=== PATIENT | female | born 1985 | race Caucasian/White ===

== ENCOUNTER → 2016-12-12 | Outpatient (REF) | LOC: ZLAB.WCH 18:25 | DX: Z01.89 Encounter for other specified special examinations (principal) ==

== ENCOUNTER → 2017-10-06 | Outpatient (REF) ==
[2017-10-06 16:32] LABS: C-REACTIVE PROTEIN < 0.5 mg/dL (0.0-0.9)
== END ==
LOC: ZLAB.WCH 15:54
PROVIDERS: Family Medicine
DX: Z01.89 Encounter for other specified special examinations (principal)

== ENCOUNTER 2019-04-14 11:03 | Inpatient (IN) | payer MEDICAID ==
[~2019-04-14] VITALS: Ht 167.6 cm; Wt 83.6 kg
[2019-04-15] VITALS (18 sets, daily range): BP systolic 98–123; BP diastolic 40–76; PULSE 64–97; TEMP 98.1–98.4
[2019-04-15] MEDS ORDERED: PRENATAL TABLET PO (08:15)
[2019-04-15 08:57] LABS: BASO % 0.2 % (0.0-2.0); EOS # 0.1 (0.0-0.7); EOS % 0.7 % (0-4.0); GRAN # 5.6 (1.4-6.5); GRAN % 67.1 % (42.2-75.2); HEMOGLOBIN 10.8 g/dl (12.5-16.0); LYMPH % 24.4 % (20.0-51.0); MEAN CELL VOLUME 86 fl (80.0-100.0); MEAN CORPUSCULAR HEMOGLOBIN 27 pg (27.0-31.0); MEAN CORPUSCULAR HGB CONC 32 g/dl (33.0-37.0); MEAN PLATELET VOLUME 10.1 fl (7.4-10.4); MONO # 0.6 (0.1-0.6); MONO % 7.1 % (1.7-9.3); PLATELET COUNT 260 K/mm3 (130-400); REDCELL DISTRIBUTION WIDTH-CV 13.8 % (11.5-14.5)
[2019-04-15 09:02] LABS: HEMATOCRIT 34.2 % (37.0-47.0)
--- NOTE | 2019-04-15 09:04 | NUR ---
0900 PATIENT READY FOR SCHEDULED C SECTION. ALL CONSENTS SIGNED AT THIS TIME. IV STARTED IN LEFT WRIST. EFM ON FHT 118 BABY VERY ACTIVE
[2019-04-16 01:55] VITALS: BP 104/47; PULSE 76; TEMP 98
[2019-04-16 07:30] VITALS: BP 104/51; PULSE 82; TEMP 98.1
--- NOTE | 2019-04-16 10:53 | NUR ---
Patient was indisposed.
[2019-04-16 16:10] VITALS: BP 113/48; PULSE 79; TEMP 97.6
--- NOTE | 2019-04-16 17:00 | NUR ---
Bruise noted below incision and marked border with marker.
[2019-04-16 20:30] VITALS: BP 99/71; PULSE 82; TEMP 97.7
[2019-04-17] MEDS ORDERED: IBU600 MG PO (08:35)
[2019-04-17] MEDS ORDERED: PERCOCET 325 MG1 TA2 PO (08:35)
[2019-04-17 09:00] VITALS: BP 114/58; PULSE 71; TEMP 98.5
== END 2019-04-17 12:50 | disposition home or self-care (01) | DRG 788 ==
LOC: OB 04-15 07:48
PROVIDERS: ADMIT Obstetrics & Gynecology
PROC: 10D00Z1 Extraction of Products of Conception, Low, Open Approach (ICD-10-PCS; principal; 2019-04-15)
DX: O34.211 Maternal care for low transverse scar from previous cesarean delivery (principal); Z37.0 Single live birth; O99.02 Anemia complicating childbirth; O36.63X0 Maternal care for excessive fetal growth, third trimester, not applicable or unspecified; O99.334 Smoking (tobacco) complicating childbirth; F17.210 Nicotine dependence, cigarettes, uncomplicated; O75.89 Other specified complications of labor and delivery; G43.909 Migraine, unspecified, not intractable, without status migrainosus; D64.9 Anemia, unspecified; Z3A.39 39 weeks gestation of pregnancy
CPT/HCPCS: J0690; J1885; J2250; J2270; J2370; J2405; J2590; J2765; J3010; J7120

== ENCOUNTER → 2019-04-26 | Outpatient (CLI) | payer MEDICAID ==
[~2019-04-26] MED LIST: IBU600 MG PO; PERCOCET 325 MG1 TA2 PO; PRENATAL TABLET PO
--- NOTE | 2019-04-26 14:59 | NUR ---
Pt, Rosalinda Rodriguez, presents to walk-in clinic with 11 day old baby girl, Lanie Rodriguez, with concerns of low milk supply and pump fit questions. Lanie was born on 04/15/2019 by C/section and weighed 8#15.6oz. She had early supplement for low blood glucose and was continuing to be supplemented after discharge. Pt states she did feel milk supply increase a few days after discharge. She was but the baby was not content and continued supplement with formula. At this appointment Lanie is not weighed as she is bottle feeding formula or EBM every 2-3 hours, taking about 3oz per feeding. Pt declines a weight check for . Pt states she pumps 2-3 times per day, collecting about 1-2 per session. Pt wants LC to evaluate pump fit, she has standard size sheild she thinks it too large on the right. Pt pumps with smaller size on the right, states it feels more comfortable. She collects a little over 1oz after pumping less than 10 minutes. She elects to shut the pump off at this time because of discomfort and drips of milk are infrequent. Handouts provided and reviewed about ways to work on improvement of milk supply. Pt encouraged to choose what suggestions she feels she can accomplish and be consistent for 3-4 days to evaluate if milk volume is improving. Encouraged to work on milk supply to make more appealing to infant, but she is encouraged to breastfeed as baby will cooperate as well. Pt verbalizes understanding, questions invited and answered.
== END ==
LOC: LAC 13:44
DX: Z39.1 Encounter for care and examination of lactating mother (principal); Z71.89 Other specified counseling

== ENCOUNTER 2019-08-31 08:33 | Day surgery (SDC) | payer OTHER ==
[~2019-08-31] VITALS: Ht 167.6 cm; Wt 65.6 kg
[2019-08-31 09:27] VITALS: BP 120/63; PULSE 75; TEMP 97.6
[2019-08-31] MEDS ORDERED: PROZAC 20MG20 MG PO (09:43)
[2019-08-31] MEDS ORDERED: PRILOSEC 20MG20 MG PO (09:45)
[2019-08-31] MEDS ORDERED: AMOXICILLIN 8751 TAB PO (09:45)
[2019-08-31] MEDS ORDERED: NEOMYCIN S500 MG/TAB PO (09:46)
[2019-08-31 10:10] VITALS: BP 105/53; PULSE 76; TEMP 98.1
--- NOTE | 2019-08-31 10:10 | NUR ---
Patient was brought back to [facility] via cart. Ambulated to recliner with one assist. Placed on monitors, stable. IV infusing without difficulty. Patient denies pain or nausea. Requesting shayy. Report recieved from Nuris RAMON. Warm blanket provided, call leon within reach, at bedside. Will continue to monitor.
[2019-08-31 10:25] VITALS: BP 94/56; PULSE 68
--- NOTE | 2019-08-31 10:25 | NUR ---
Patient reports she is feeling well. Vital signs remains stable. Will continue to monitor.
[2019-08-31 10:40] VITALS: BP 97/55; PULSE 65
--- NOTE | 2019-08-31 10:40 | NUR ---
Patient tolerating food and drink without difficulty. Dr. Basilio in room to review results. Patient states she is ready to go home at this time. IV removed, without difficulty. Patient to get dressed at this time.
--- NOTE | 2019-08-31 10:45 | NUR ---
Patients discharge instructions reviewed with patient and family. All questions answered. Education packets provided.
--- NOTE | 2019-08-31 10:56 | NUR ---
Patient brought down to lobby via wheel chair. To be driven home by . All belongings in hand.
== END 2019-08-31 10:56 | disposition home or self-care (01) ==
LOC: SDCO 08:33
DX: K29.50 Unspecified chronic gastritis without bleeding (principal); K21.9 Gastro-esophageal reflux disease without esophagitis; K59.00 Constipation, unspecified; F41.9 Anxiety disorder, unspecified
CPT/HCPCS: J2250; J3010; J7030

== ENCOUNTER 2020-09-03 09:59 | Inpatient (IN) | payer MEDICAID ==
[2020-09-03] VITALS (19 sets, daily range): BP systolic 90–135; BP diastolic 47–68; PULSE 71–108; TEMP 98–98.6
[~2020-09-03] VITALS: Ht 165.1 cm; Wt 79.5 kg
[~2020-09-03 09:59] MED LIST changes: +AMOXICILLIN 8751 TAB PO; +NEOMYCIN S500 MG/TAB PO; +PRILOSEC 20MG20 MG PO; +PROZAC 20MG20 MG PO
[2020-09-03 10:40] LABS: BASO % 0.2 % (0.0-2.0); EOS % 0.5 % (0-4.0); GRAN # 5.9 (1.4-6.5); GRAN % 72.8 % (42.2-75.2); HEMOGLOBIN 11.6 g/dl (12.5-16.0); LYMPH # 1.6 (1.2-3.4); LYMPH % 19.8 % (20.0-51.0); MEAN CELL VOLUME 87 fl (80.0-100.0); MEAN CORPUSCULAR HEMOGLOBIN 29 pg (27.0-31.0); MEAN CORPUSCULAR HGB CONC 33 g/dl (33.0-37.0); MEAN PLATELET VOLUME 9.8 fl (7.4-10.4); MONO # 0.5 (0.1-0.6); MONO % 6.3 % (1.7-9.3); PLATELET COUNT 254 K/mm3 (130-400); REDCELL DISTRIBUTION WIDTH-CV 13.9 % (11.5-14.5)
[2020-09-03 10:44] LABS: HEMATOCRIT 34.7 % (37.0-47.0)
[2020-09-03] MEDS ORDERED: PRENATAL (11:13)
[2020-09-03] MEDS ORDERED: PROFERRIN ES12 MG PO (11:13)
[2020-09-03] MEDS ORDERED: SENNA-LAX8.6 MG PO (11:13)
[2020-09-03] MEDS ORDERED: MOTRIN 800800 MG/TAB PO (19:47)
[2020-09-03] MEDS ORDERED: PERCOCET 325 MG1 TA2 PO (19:47)
[2020-09-03] MEDS ORDERED: MACROBID 1100 MG/CAP PO (19:48)
[2020-09-04 04:15] VITALS: BP 104/52; PULSE 71; TEMP 97.6
[2020-09-04 08:11] VITALS: BP 98/40; PULSE 50; TEMP 98
[2020-09-04 12:56] VITALS: BP 127/69; PULSE 80; TEMP 98
[2020-09-04 17:21] VITALS: BP 112/50; PULSE 73; TEMP 98
[2020-09-04 21:30] VITALS: BP 102/45; PULSE 76; TEMP 97.4
[2020-09-05 07:48] VITALS: BP 102/66; PULSE 74; TEMP 98.6
== END 2020-09-05 14:45 | disposition home or self-care (01) | DRG 788 ==
LOC: OB 09:59
PROVIDERS: ADMIT Obstetrics & Gynecology
PROC: 10D00Z1 Extraction of Products of Conception, Low, Open Approach (ICD-10-PCS; principal; 2020-09-03)
PROC: 0TQB0ZZ Repair Bladder, Open Approach (ICD-10-PCS; 2020-09-03)
DX: O34.211 Maternal care for low transverse scar from previous cesarean delivery (principal); O99.02 Anemia complicating childbirth; D64.9 Anemia, unspecified; O99.344 Other mental disorders complicating childbirth; F41.9 Anxiety disorder, unspecified; Z3A.39 39 weeks gestation of pregnancy; Z37.0 Single live birth
CPT/HCPCS: J0690; J1100; J1885; J2250; J2405; J2590; J2765; J3010; J7120

== ENCOUNTER → 2020-09-13 | Outpatient (CLI) | payer MEDICAID ==
[~2020-09-13] MED LIST changes: +MACROBID 1100 MG/CAP PO; +MOTRIN 800800 MG/TAB PO; +PRENATAL; +PROFERRIN ES12 MG PO; +SENNA-LAX8.6 MG PO
== END ==
LOC: COL.RAD 07:37
DX: N99.71 Accidental puncture and laceration of a genitourinary system organ or structure during a genitourinary system procedure (principal)
CPT/HCPCS: Q9967

== ENCOUNTER → 2022-05-26 | Outpatient (CLI) | payer MEDICAID | LOC: COL.RAD 08:53 | DX: R14.0 Abdominal distension (gaseous) (principal); R68.81 Early satiety; R10.13 Epigastric pain; R14.3 Flatulence; R14.1 Gas pain; R14.2 Eructation | CPT/HCPCS: A9541 ==

== ENCOUNTER 2023-12-02 19:35 | Emergency (ER) | payer OTHER ==
[~2023-12-02] VITALS: Ht 165.1 cm; Wt 50.9 kg
[2023-12-02 19:43] VITALS: TEMP 99.1
[2023-12-02 20:37] LABS: COLLECTION METHOD CLEAN CATCH
[2023-12-02 20:40] LABS: BASO % 0.4 % (0.0-2.0); EOS % 0.7 % (0.0-4.0); GRAN # 3.4 K/mm3 (1.4-6.5); GRAN % 59.3 % (42.2-75.2); HEMATOCRIT 43.2 % (37.0-47.0); HEMOGLOBIN 14.3 g/dl (12.5-16.0); LYMPH # 1.7 K/mm3 (1.2-3.4); LYMPH % 29.6 % (20.0-51.0); MEAN CELL VOLUME 92 fl (80.0-100.0); MEAN CORPUSCULAR HEMOGLOBIN 30 pg (27-31); MEAN CORPUSCULAR HGB CONC 33 g/dl (33.0-37.0); MEAN PLATELET VOLUME 9.8 fl (7.4-10.4); MONO # 0.6 K/mm3 (0.1-0.6); MONO % 9.8 % (1.7-9.3); PLATELET COUNT 201 K/mm3 (130-400); RED BLOOD COUNT 4.72 M/mm3 (4.10-5.30); REDCELL DISTRIBUTION WIDTH-CV 11.8 % (11.5-14.5)
[2023-12-02 20:45] LABS: PH 6.5 (5.0-8.5); URINE APPEARANCE CLEAR (CLEAR/HAZY); URINE BLOOD 2+ (NEGATIVE); URINE COLOR YELLOW (YELLOW); URINE GLUCOSE NEGATIVE (NEGATIVE); URINE KETONE NEGATIVE (NEGATIVE); URINE NITRATE NEGATIVE (NEGATIVE); URINE PROTEIN(semi-quant) NEGATIVE (NEGATIVE); URINE UROBILINOGEN 0.2 E.U/dL (0.2-1.0)
[2023-12-02 21:06] LABS: ALBUMIN 4.3 g/dL (3.5-5.0); BILIRUBIN,TOTAL 0.6 mg/dL (0.2-1.2); CALCIUM 9.6 mg/dL (8.4-10.2); CREATININE, serum 0.74 mg/dL (0.57-1.11); POTASSIUM 3.6 mEq/L (3.5-4.5); TOTAL PROTEIN 7.6 g/dl (6.2-8.1)
[2023-12-02] MEDS ORDERED: NS 1,000 ML IV ONE (21:30)
[2023-12-02] MEDS ORDERED: Ketorolac 30 MG/ML VIAL IV ONE (21:30)
[2023-12-02] MEDS ORDERED: Iohexol 300 - 100 ML VIAL IV ONE (21:41)
[2023-12-02] MEDS ORDERED: NS 100 ML IV ONE (21:42)
[2023-12-02 23:07] VITALS: BP 119/79; PULSE 68
== END 2023-12-02 23:07 | disposition home or self-care (01) ==
LOC: COL.ER 19:35
PROVIDERS: Nurse Practitioner Primary Care
DX: R10.11 Right upper quadrant pain (principal)
CPT/HCPCS: J1885; J7030; Q9967